=== PATIENT | female | born 1975 | race Caucasian/White ===

== ENCOUNTER 2019-08-24 12:51 | Emergency (ER) | payer MEDICAID, OTHER, SELFPAY ==
[~2019-08-24] VITALS: Ht 162.6 cm; Wt 64.0 kg
[2019-08-24] MEDS ORDERED: KETOROLAC 30MG/ML VIAL IM ONE (13:15)
[2019-08-24 14:00] VITALS: BP 110/65
[2019-08-25] MEDS ORDERED: AZIT500T8 MT (14:59)
== END 2019-08-24 14:19 | disposition home or self-care (01) ==
LOC: ER 12:51
DX: U07.1 COVID-19 (principal); R05 Cough; R50.9 Fever, unspecified; R07.89 Other chest pain
CPT/HCPCS: 71045; 96372; 99283; J1885; U0003

== ENCOUNTER 2019-08-25 07:14 | Inpatient (IN) | payer MEDICAID, OTHER ==
[~2019-08-25] VITALS: Ht 170.2 cm; Wt 59.0 kg
[2019-08-25] MEDS ORDERED: ONDANSETRON HCL 4MG/2ML INJ IV STA (07:49)
[2019-08-25] MEDS ORDERED: MORPHINE SULFATE 4 MG/ML CPJ (NOT FOR IM USE) IV STA (07:49)
[2019-08-25] MEDS ORDERED: SODIUM CHLORIDE 0.9% 500 ML IV ONE (07:49)
[2019-08-25 08:00] LABS: CLARITY URINE CLEAR (CLEAR); COLOR URINE YELLOW (YELLOW); KETONES URINE NEGATIVE (NEGATIVE); LEUKOCYTE ESTERASE URINE NEGATIVE (NEGATIVE); NITRITE URINE NEGATIVE (NEGATIVE); OCCULT BLOOD URINE NEGATIVE (NEGATIVE); PROTEIN URINE 3+ (NEGATIVE); SPECIFIC GRAVITY URINE 1.042 (1.005-1.030)
[2019-08-25 08:50] LABS: BASOPHILS % 0.3 % (0.0-2.0); HEMATOCRIT. 38.3 % (36.0-48.0); HEMOGLOBIN. 13.6 g/dL (12.0-16.0); LYMPHOCYTES % 14.4 % (20.0-50.0); MEAN CORPUSCULAR HEMOGLOBIN 30.9 pg (28.0-32.0); MEAN CORPUSCULAR VOLUME 87.3 fL (81.0-99.0); MEAN PLATELET VOLUME 9.5 fl (7.4-10.4); MONOCYTES % 5.4 % (2.0-8.0); NEUTROPHILS % 79.9 % (40.0-76.0); PLATELET 152 x1000/uL (130-400); RED BLOOD CELL COUNT 4.38 mill/uL (4.2-5.4); RED CELL DISTRIBUTION WIDTH 13.8 % (11.6-14.6)
[2019-08-25 08:57] LABS: CHLORIDE 105 mEq/L (98-107)
[2019-08-25] MEDS ORDERED: CEFTRIAXONE 2 G PREMIX 50 ML IV ONE (09:30)
[2019-08-25] MEDS ORDERED: VISCOUS LIDOCAINE 2% 15 ML UDC PO STA (10:01)
[2019-08-25] MEDS ORDERED: MAGNESIUM/ALUMINUM HYDROXIDE/SIMETHICONE 30ML UDC PO STA (10:01)
[2019-08-25] MEDS ORDERED: FAMOTIDINE 20MG/2ML VIAL IV ONE (10:15)
[2019-08-25 14:25] VITALS: BP 140/103
[2019-08-25 14:44] VITALS: BP 140/103
[2019-08-25] MEDS ORDERED: AZIT500T8 MT (14:59)
[2019-08-25] MEDS ORDERED: AZITHROMYCIN 500 MG TABLET PO SCH (16:00)
[2019-08-25] MEDS ORDERED: ZOLPIDEM TARTRATE 5MG TABLET PO PRN (16:15)
[2019-08-25] MEDS ORDERED: ONDANSETRON HCL 4MG/2ML INJ IV PRN (16:15)
[2019-08-25] MEDS ORDERED: ALBUTEROL 6.7GM HFA INHALER ORI PRN (16:15)
[2019-08-25] MEDS ORDERED: ACETAMINOPHEN 325MG TABLET PO PRN (16:15)
[2019-08-25] MEDS ORDERED: DIPHENHYDRAMINE 50MG/ML VIAL IV PRN (16:15)
[2019-08-25] MEDS ORDERED: MAGNESIUM/ALUMINUM HYDROXIDE/SIMETHICONE 30ML UDC PO PRN (16:15)
[2019-08-25] MEDS ORDERED: POTASSIUM CHLORIDE 20MEQ TABLET SR PO NR (16:31)
[2019-08-25] MEDS: GUAIFENESIN 200MG/10ML SUGAR FREE UDC PO PRN ×2 (16:40→23:54)
[2019-08-25] MEDS: KETOROLAC 30MG/ML VIAL IV PRN ×2 (16:40→23:54)
[2019-08-25 20:19] VITALS: BP 94/48
[2019-08-25] MEDS: ENOXAPARIN 40MG/0.4ML SYR SUBCUT SCH (20:31)
[2019-08-25] MEDS: GUAIFENESIN 600MG ER TABLET PO SCH (20:32)
[2019-08-25] MEDS: FAMOTIDINE 20MG TABLET PO SCH (20:32)
[2019-08-25] MEDS: SODIUM CHLORIDE 0.9% INJ 3ML FLUSH IVF SCH (21:53)
[2019-08-25 23:49] VITALS: BP 104/54
[2019-08-26 03:57] VITALS: BP 112/54
[2019-08-26] MEDS: ACETAMINOPHEN 325MG TABLET PO PRN (04:09)
[2019-08-26] MEDS: SODIUM CHLORIDE 0.9% INJ 3ML FLUSH IVF SCH ×3 (05:32→21:21)
[2019-08-26 08:00] VITALS: BP 95/39
[2019-08-26] MEDS: KETOROLAC 30MG/ML VIAL IV PRN ×4 (08:46→22:09)
[2019-08-26] MEDS: GUAIFENESIN 600MG ER TABLET PO SCH ×2 (09:31→21:20)
[2019-08-26] MEDS: AZITHROMYCIN 250 MG TABLET PO SCH (09:31)
[2019-08-26] MEDS: FAMOTIDINE 20MG TABLET PO SCH ×2 (09:31→21:20)
[2019-08-26] MEDS: METHYLPREDNISOLONE SOD SUCC 40 MG/ML VIAL IV SCH ×2 (09:37→21:20)
[2019-08-26] MEDS: ALBUTEROL 6.7GM HFA INHALER ORI SCH ×3 (10:00→18:00)
[2019-08-26] MEDS: CEFTRIAXONE 1 G PREMIX 50 ML IV SCH (11:39)
[2019-08-26 12:00] VITALS: BP 115/61
[2019-08-26] MEDS: GUAIFENESIN 200MG/10ML SUGAR FREE UDC PO PRN (13:32)
[2019-08-26 16:00] VITALS: BP 110/68
[2019-08-26] MEDS ORDERED: GUAIFENESIN-DM 200MG-20MG/10ML UDC PO PRN (16:15)
[2019-08-26] MEDS: ENOXAPARIN 40MG/0.4ML SYR SUBCUT SCH (17:53)
[2019-08-26] MEDS: BENZONATATE 100MG CAPSULE PO SCH ×2 (17:55→21:20)
[2019-08-26 20:00] VITALS: BP 114/52
[2019-08-27] VITALS: BP 121/58
[2019-08-27 04:00] VITALS: BP 127/65
[2019-08-27] MEDS: SODIUM CHLORIDE 0.9% INJ 3ML FLUSH IVF SCH ×3 (05:21→21:13)
[2019-08-27] MEDS: ALBUTEROL 6.7GM HFA INHALER ORI SCH ×3 (05:21→18:00)
[2019-08-27] MEDS: BENZONATATE 100MG CAPSULE PO SCH ×3 (05:21→21:12)
[2019-08-27] MEDS: KETOROLAC 30MG/ML VIAL IV PRN ×3 (06:14→22:46)
[2019-08-27 08:00] VITALS: BP 103/54
[2019-08-27] MEDS: CEFTRIAXONE 1 G PREMIX 50 ML IV SCH (10:09)
[2019-08-27] MEDS: AZITHROMYCIN 250 MG TABLET PO SCH (10:10)
[2019-08-27] MEDS: FAMOTIDINE 20MG TABLET PO SCH ×2 (10:10→21:12)
[2019-08-27] MEDS: GUAIFENESIN 600MG ER TABLET PO SCH ×2 (10:10→21:13)
[2019-08-27] MEDS: METHYLPREDNISOLONE SOD SUCC 40 MG/ML VIAL IV SCH ×2 (10:12→21:12)
[2019-08-27 12:00] VITALS: BP 112/58
[2019-08-27] MEDS: GUAIFENESIN 200MG/10ML SUGAR FREE UDC PO PRN ×2 (13:17→16:42)
[2019-08-27 16:00] VITALS: BP 112/55
[2019-08-27] MEDS: ENOXAPARIN 40MG/0.4ML SYR SUBCUT SCH (16:42)
[2019-08-27 20:00] VITALS: BP 108/58
[2019-08-28 00:13] VITALS: BP 123/56
[2019-08-28] MEDS: ALBUTEROL 6.7GM HFA INHALER ORI SCH ×5 (00:24→23:54)
[2019-08-28 04:00] VITALS: BP 101/53
[2019-08-28] MEDS: SODIUM CHLORIDE 0.9% INJ 3ML FLUSH IVF SCH ×3 (05:06→21:11)
[2019-08-28] MEDS: BENZONATATE 100MG CAPSULE PO SCH ×3 (05:23→21:11)
[2019-08-28 08:00] VITALS: BP 115/59
[2019-08-28] MEDS: METHYLPREDNISOLONE SOD SUCC 40 MG/ML VIAL IV SCH (09:18)
[2019-08-28] MEDS: CEFTRIAXONE 1 G PREMIX 50 ML IV SCH (09:18)
[2019-08-28] MEDS: FAMOTIDINE 20MG TABLET PO SCH ×2 (09:19→21:11)
[2019-08-28] MEDS: GUAIFENESIN 600MG ER TABLET PO SCH ×2 (09:19→21:11)
[2019-08-28] MEDS: AZITHROMYCIN 250 MG TABLET PO SCH (09:19)
[2019-08-28] MEDS: KETOROLAC 30MG/ML VIAL IV PRN ×2 (09:25→22:47)
[2019-08-28 12:00] VITALS: BP 123/69
[2019-08-28 16:00] VITALS: BP 105/52
[2019-08-28] MEDS: ENOXAPARIN 40MG/0.4ML SYR SUBCUT SCH (17:17)
[2019-08-28 20:00] VITALS: BP 109/58
[2019-08-29] VITALS: BP 106/51
[2019-08-29 04:00] VITALS: BP 112/58
[2019-08-29] MEDS: BENZONATATE 100MG CAPSULE PO SCH ×3 (06:20→21:01)
[2019-08-29] MEDS: ALBUTEROL 6.7GM HFA INHALER ORI SCH ×4 (06:21→23:16)
[2019-08-29] MEDS: SODIUM CHLORIDE 0.9% INJ 3ML FLUSH IVF SCH ×3 (06:33→21:01)
[2019-08-29] MEDS: AZITHROMYCIN 250 MG TABLET PO SCH (08:15)
[2019-08-29] MEDS: GUAIFENESIN 600MG ER TABLET PO SCH ×2 (08:15→20:46)
[2019-08-29] MEDS: PREDNISONE 20MG TABLET PO SCH (08:15)
[2019-08-29] MEDS: FAMOTIDINE 20MG TABLET PO SCH ×2 (08:15→20:46)
[2019-08-29] MEDS: CEFTRIAXONE 1 G PREMIX 50 ML IV SCH (08:15)
[2019-08-29] MEDS: KETOROLAC 30MG/ML VIAL IV PRN ×3 (08:16→23:15)
[2019-08-29] MEDS: ACETAMINOPHEN 325MG TABLET PO PRN ×3 (09:15→20:46)
[2019-08-29 12:00] VITALS: BP 113/50
[2019-08-29 16:00] VITALS: BP 100/60
[2019-08-29] MEDS: ENOXAPARIN 40MG/0.4ML SYR SUBCUT SCH (16:40)
[2019-08-29 16:49] LABS: CHLORIDE 103 mEq/L (98-107)
[2019-08-29 16:55] LABS: HEMATOCRIT. 36.7 % (36.0-48.0); HEMOGLOBIN. 12.7 g/dL (12.0-16.0); MEAN CORPUSCULAR HEMOGLOBIN 30.3 pg (28.0-32.0); MEAN CORPUSCULAR VOLUME 87.5 fL (81.0-99.0); MEAN PLATELET VOLUME 8.6 fl (7.4-10.4); PLATELET 261 x1000/uL (130-400)
[2019-08-29 17:18] LABS: PLATELET ESTIMATE NORMAL
[2019-08-29 20:00] VITALS: BP 105/55
[2019-08-30] VITALS: BP 126/53
[2019-08-30 04:00] VITALS: BP 117/69
[2019-08-30] MEDS: BENZONATATE 100MG CAPSULE PO SCH ×2 (06:14→13:01)
[2019-08-30] MEDS: SODIUM CHLORIDE 0.9% INJ 3ML FLUSH IVF SCH ×2 (06:15→14:00)
[2019-08-30] MEDS: ALBUTEROL 6.7GM HFA INHALER ORI SCH ×2 (06:17→12:00)
[2019-08-30 08:00] VITALS: BP 114/53
[2019-08-30] MEDS: GUAIFENESIN 600MG ER TABLET PO SCH (08:32)
[2019-08-30] MEDS: FAMOTIDINE 20MG TABLET PO SCH (08:32)
[2019-08-30] MEDS: PREDNISONE 20MG TABLET PO SCH (08:33)
[2019-08-30] MEDS: KETOROLAC 30MG/ML VIAL IV PRN (08:44)
[2019-08-30] MEDS ORDERED: ALBU6.7H9 ORI (11:50)
[2019-08-30] MEDS ORDERED: GUAI600T44 PO (11:50)
[2019-08-30] MEDS ORDERED: AZIT500T8 MT (11:50)
[2019-08-30 12:00] VITALS: BP 124/64
[2019-08-30 12:40] VITALS: BP 124/64
[2019-08-30] MEDS: ENOXAPARIN 40MG/0.4ML SYR SUBCUT SCH (17:51)
== END 2019-08-30 20:30 | disposition home or self-care (01) | DRG 720 ==
LOC: ER 07:14 → 7WST 11:18 → EDBEDREQ 11:29 → EDBEDREQTM 11:29 → ENRESERV 11:54
PROVIDERS: ADMIT Internal Medicine; ATTEND Internal Medicine
DX: A41.89 Other specified sepsis (principal); U07.1 COVID-19; J96.01 Acute respiratory failure with hypoxia; J12.89 Other viral pneumonia; E87.6 Hypokalemia; J20.8 Acute bronchitis due to other specified organisms; B97.89 Other viral agents as the cause of diseases classified elsewhere; I10 Essential (primary) hypertension; Z79.51 Long term (current) use of inhaled steroids; Z79.1 Long term (current) use of non-steroidal anti-inflammatories (NSAID); Z79.899 Other long term (current) drug therapy
CPT/HCPCS: 36415; 71045; 80051; 80053; 81003; 82728; 83615; 83735; 83880; 84484; 85025; 85379; 86140; 93005; 99285; J0696; J1650; J1885; J2270; J2405; J2920; J3490; J7030; J7512; U0003-CS